=== PATIENT | male | born 1985 | race Caucasian/White ===

== ENCOUNTER 2021-05-15 19:19 | Emergency (ER) | payer BC, SELFPAY ==
--- NOTE | ~2021-05-15 | XR_ITS ---
EXAMINATION: XR chest 1V portable DATE: 05/15/2021 23:53 INDICATION: Chest of breath. Chest pain. TECHNIQUE: A single frontal view of the chest was obtained. COMPARISON: None. FINDINGS: The chest demonstrates clear lungs without pneumonia, pleural effusion, or pneumothorax. Th e heart size is normal. IMPRESSION: 1. No acute cardiopulmonary disease. Reviewed, dictated and finalized at location A. [facility]
[2021-05-15 19:48] VITALS: BP 145/97; PULSE 103; RESP 16; TEMP 36.6; O2SAT 100
[2021-05-15 21:43] VITALS: BP 150/89; PULSE 98; RESP 18; O2SAT 100
--- NOTE | 2021-05-15 21:56 | PC.NURSE ---
Pt left ED prior to seeing provider. Ambulatory with steady gait, no sign of any kind of distress.
--- NOTE | 2021-05-15 22:26 | PC.NURSE ---
Pt seen back inside of ED waiting area.
[2021-05-15 23:34] VITALS: BP 171/106; PULSE 84; RESP 17; O2SAT 100
[2021-05-15 23:35] VITALS: PULSE 88; RESP 20; O2SAT 100
--- NOTE | 2021-05-15 23:35 | ECG_ITS ---
Measurements Intervals [place] Rate: 89 P: 46 DC: 133 QRS: -10 QRSD: 84 T: 12 QT: 334 QTc: 408 Interpretive Statements SINUS RHYTHM VOLTAGE CRITERIA FOR LVH MINIMAL Q WAVES- HIGH LATERAL LEADS BORDERLINE T WAVE ABNORMALITY- INFERIOR LEADS BASELINE ARTIFACT- I, II, III, AVR, AVL, AVG, V1-V6 BORDERLINE ECG Electronically Signed On 05-16-2021 6:20:56 [employer] by Aryan Walter D.O.
[2021-05-15 23:45] VITALS: PULSE 91; RESP 20; O2SAT 100
[2021-05-15 23:46] VITALS: BP 139/97; PULSE 92; RESP 24; O2SAT 100
[2021-05-15] MEDS: amLODIPine BESYLATE 5 MG TABLET PO (23:49)
[2021-05-16 00:06] LABS: Basophils Percent Auto 0.4 % (0.2-1.2); Eosinophils Absolute Auto 0.1 K/mm3 (0-0.3); Eosinophils Percent Auto 0.8 % (0-4.4); Hematocrit 44.3 % (42.0-52.0); Hemoglobin 15.3 g/dL (14.0-18.0); Immature Granulocyte Absolute 0.04 K/mm3 (0.00-0.031); Immature Granulocyte Percent A 0.4 % (0-0.5); Lymphocytes Absolute Auto 1.77 K/mm3 (0.9-3.2); Lymphocytes Percent Auto 16.4 % (18.3-44.2); Mean Corpuscular HGB Conc 34.5 g/dl (32-36); Mean Corpuscular Hemoglobin 30.5 pg (26-34); Mean Corpuscular Volume 88.4 fl (80-100); Mean Platelet Volume 8.9 fl (7.4-10.4); Monocytes Absolute Auto 0.8 K/mm3 (0.1-0.6); Monocytes Percent Auto 7.4 % (2.6-8.5); Neutrophils Absolute Auto 8.1 K/mm3 (1.3-6.7); Neutrophils Percent Auto 74.6 % (45.5-73.1); Platelet Count Result 283 k/mm3 (150-375); Red Blood Count 5.01 M/mm3 (4.6-6.20); Red Cell Distribution Width 12.9 % (11.5-14.5); White Blood Count 10.8 K/mm3 (4.5-10.0)
[2021-05-16 00:18] LABS: Add Urine Microscopic? NO; Appearance Urine Clear (Clear); Bilirubin Urine Negative (Negative); Blood Urine Negative (Negative); Color Urine Straw (Yellow); Glucose Urine UA Negative (Negative); Ketones Urine Negative (Negative); Leukocyte Esterase Ur Negative LEU/UL (Negative); Nitrate Urine Negative (Negative); Protein Urine Negative (Negative); Specific Grav Ur 1.005 (1.001-1.035); Urobilinogen Urine Negative mg/dL (<2.0)
[2021-05-16 00:20] LABS: Anion Gap 11 mmol/L (8-16); Blood Urea Nitrogen 8 mg/dL (9-20); Calcium 9.5 mg/dL (8.4-10.2); Carbon Dioxide 27 mmol/L (22-30); Chloride 99 mmol/L (98-107); Estimated CRCL calculation 114 ml/min; Estimated Glomerular Filt Rate > 60; Glucose 94 mg/dL (65-110); Potassium 3.8 mmol/L (3.4-5.0); Sodium 137 mmol/L (137-145)
--- NOTE | 2021-05-16 00:24 | ED.GENADULT ---
HPI - General Adult General Chief complaint: Recheck/Abnormal Lab/Rx Stated complaint: HTN SOB Time Seen by Provider: 05/15/21 23:31 Source: patient Mode of arrival: ambulatory Limitations: no limitations History of Present Illness HPI narrative: 35-year-old with no major medical problems here with a complaint of elevated blood pressure for the last 1 week. Patient states that his blood pressure was high for the last few days. He denies any headache however he is states that occasionally he gets chest tightness . Also feels short of breath at times. He states he has a strong family history of high blood pressure daily patient states that he called his primary doctor and has an appointment in 1 week. He states that he is under stress he got recently and has 2 kids. Onset (ago): week(s) (1) Associated symptoms: denies other symptoms Related Data Allergies Allergy/AdvReac Type Severity Reaction Status Date / Time No Known Allergies Allergy Mild Verified 05/15/21 19:52 Review of Systems Review of Systems: All systems reviewed & are unremarkable except as noted in HPI and below Constitutional: Constitutional: Reports no additional constitutional complaints Eyes: Eyes: Reports no additional eye complaints ENT: Reports system reviewed and no additional complaints, except as documented Cardiovascular: Cardiovascular: Reports as per HPI Respiratory: Respiratory: Reports no additional respiratory complaints Gastrointestinal: Gastrointestinal: Reports no additional gastrointestinal complaints Musculoskeletal: Musculoskeletal: Reports no additional musculoskeletal complaints [facility] Family History Family History Mother Family history of gout Hypertension Father Patient's father is Social History Social History Smoking status: Former smoker Second hand tobacco smoke exposure: No Smoking end date: 04/29/15 Alcohol intake: current Exam Narrative: GENERAL: Well-appearing, well-nourished, and in no acute distress. HEAD: Normocephalic, atraumatic. EYES: PERRLA and EOMI. NECK: Supple. CHEST: Clear to auscultation. No respiratory distress. HEART: Regular rate and rhythm. No murmur heard. Normal peripheral pulses. ABDOMEN: Soft, nontender, nondistended, normal active bowel sounds. EXTREMITIES: Normal range of motion. No edema. SKIN: Warm, dry, no rash. NEURO: No focal deficits. Alert and oriented x3. PSYCH: Normal mood and affect. Course Course Emergency Course: Informed patient about his lab work. Advised him to take medication as prescribed., Follow-up with his primary doctor as scheduled. Vital Signs Vital signs: Vital Signs Temperature 36.6 C 05/15/21 19:48 Pulse Rate 103 H 05/15/21 19:48 Respiratory Rate 16 05/15/21 19:48 Blood Pressure 145/97 H 05/15/21 19:48 Pulse Oximetry 100 05/15/21 19:48 Temperature 36.6 C 05/15/21 19:48 Pulse Rate 98 05/15/21 21:43 Respiratory Rate 18 05/15/21 21:43 Blood Pressure 150/89 H 05/15/21 21:43 Pulse Oximetry 100 05/15/21 21:43 Medical Decision Making Vital Signs Vital Signs: Vital Signs Temperature 36.6 C 05/15/21 19:48 Pulse Rate 103 H 05/15/21 19:48 Respiratory Rate 16 05/15/21 19:48 Blood Pressure 145/97 H 05/15/21 19:48 Pulse Oximetry 100 05/15/21 19:48 Temperature 36.6 C 05/15/21 19:48 Pulse Rate 98 05/15/21 21:43 Respiratory Rate 18 05/15/21 21:43 Blood Pressure 150/89 H 05/15/21 21:43 Pulse Oximetry 100 05/15/21 21:43 Lab Data Result diagrams: 05/15/21 23:45 05/15/21 23:45 Labs: Lab Results 05/15/21 05/15/21 05/15/21 Range/Units 23:45 23:45 23:45 WBC 10.8 H (4.5-10.0) K/mm3 RBC 5.01 (4.6-6.20) M/mm3 Hgb 15.3 (14.0-18.0) g/dL Hct 44.3 (42.0-52.0) % MCV 88.4 (80-100) fl MCH 30.5
[2021-05-16 00:29] VITALS: PULSE 83; RESP 22; O2SAT 100
[2021-05-16 00:29] LABS: Troponin I < 0.012 ng/mL (0.000-0.034)
[2021-05-16 00:33] LABS: D Dimer 0.27 ug/mL (<0.48)
[2021-05-16 00:39] VITALS: BP 130/98; PULSE 81; RESP 12; O2SAT 97
== END 2021-05-16 00:42 | disposition home or self-care (01) ==
PROVIDERS: Emergency Provider Family Medicine; PCP Physician Assistant
DX: I10 Essential (primary) hypertension (principal); Z87.891 Personal history of nicotine dependence
CPT/HCPCS: 36415; 71045; 80048; 81003; 84443; 84484; 85025; 85380; 93005; 99284; A9270

== ENCOUNTER 2023-01-08 14:40 | Emergency (ER) | payer BC, SELFPAY ==
[2023-01-08 14:50] VITALS: BP 144/98; PULSE 112; RESP 18; TEMP 36.2; O2SAT 98
--- NOTE | 2023-01-08 15:06 | ED.NAVMDI ---
HPI - Nausea/Vomiting/Diarrhea General Chief complaint: Nausea/Vomiting/Diarrhea Stated complaint: nausea Time Seen by Provider: 01/08/23 14:49 Source: patient and RN notes reviewed Mode of arrival: ambulatory Limitations: no limitations History of Present Illness HPI Narrative: 37 y/o male presented for c/o nausea, vomiting and diarrhea x5 days. States he is unable to keep food or fluids down, and therefore unable to keep his BP medication down. However he stated he has drank 7 gallons of orange juice and 16 bottles of water since onset. Endorses feeling hungry but feels nauseated and is unable to eat. Reports about 2 liquid stools daily since onset. Denies abdominal pain, flank pain, hematochezia, melena, or hematemesis. Taking Pepto for symptoms. Denies anyone in the house with similar symptoms. Related Data Allergies Allergy/AdvReac Type Severity Reaction Status Date / Time No Known Allergies Allergy Mild Verified 01/08/23 14:43 Review of Systems Review of Systems: CONSTITUTIONAL: Denies body aches, fever, chills ENT: Denies rhinorrhea, congestion CARDIOVASCULAR: Denies chest pain, palpitations, or edema. RESPIRATORY: Denies cough or dyspnea. GASTROINTESTINAL: Endorses nausea, vomiting, diarrhea. Denies abdominal pain,hematochezia, melena, hematemesis GENITOURINARY: Denies dysuria, hematuria, or CVA tenderness. SKIN: Denies rash, itching, or wounds. MUSCULOSKELETAL: Denies back pain, joint pain, or myalgia. NEUROLOGIC: Denies headache, numbness, tingling, or weakness. All systems reviewed & are unremarkable except as noted in HPI and below PMFSH Past Medical History Medical History (Updated 01/08/23 @ 15:21 by Darlene Newman APRN) Hypertension Family History Family History Mother Family history of gout Hypertension Father Patient's father is Social History Social History Smoking status: Former smoker Second hand tobacco smoke exposure: No Smoking end date: 04/29/15 Alcohol intake: current Substance use: unknown Lack of Transportation: No Lack of Food: Never True Current Housing: I Have Housing Concerned About Future Housing: No Difficulty Paying Gas/Electric Bills: No Difficulty Paying for Meds: No Currently Unemployed: No Education: Associate Degree Difficulty w/ Childcare or Family Care: No Comments At time of signature, I have reviewed and agree with nursing past medical, surgical, social and family history unless otherwise noted. Please see nursing chart for further information. There is no relevant family history pertinent to the presenting complaint Exam Narrative: GENERAL: Well-appearing, and in no acute distress. EYES: EOMI. Conjunctivae normal. ENT: Mucous membranes pink and moist. CHEST: Clear to auscultation. HEART: Regular rate and rhythm. No murmur appreciated. Normal peripheral pulses. ABDOMEN: abd soft, nondistended, normal active bowel sounds. Nontender abdomen, No guarding, rebound tenderness, asymmetry EXTREMITIES: Normal range of motion. No edema. SKIN: Warm, dry, no rash. Capillary refill normal. Normal skin turgor. No petechiae NEURO: No focal deficits. Alert and oriented x3. PSYCH: Normal affect. Course Course Emergency Course: Patient is aware of diagnosis, understands and agrees to treatment plan. Anticipatory guidance given. Patient agrees to follow-up as directed and is aware of reasons to seek care at the emergency department. Portions of this record may have been created with voice recognition software Level of Care: Express Care Visit Vital Signs Vital signs: Vital Signs Temperature 97.2 F L 01/08/23 14:50 Pulse Rate 112 H 01/08/23 14:50 Respiratory Rate 18 01/08/23 14:50 Blood Pressure 144/98 H 01/08/23 14:50 Pulse Oximetry 98 01/08/23 14:50 Oxygen Delivery Room Air
== END 2023-01-08 15:12 | disposition home or self-care (01) ==
PROVIDERS: Emergency Provider Nurse Practitioner Family; PCP Internal Medicine
DX: R11.2 Nausea with vomiting, unspecified (principal); R19.7 Diarrhea, unspecified; I10 Essential (primary) hypertension; Z87.891 Personal history of nicotine dependence
CPT/HCPCS: 99213; G0463

== ENCOUNTER 2023-05-31 09:38 | Emergency (ER) | payer BC, SELFPAY ==
--- NOTE | 2023-05-31 09:44 | ED.URI ---
HPI - URI/Sore Throat General Chief Complaint: Upper Respiratory Infection Stated Complaint: sorthroat Time Seen by Provider: 05/31/23 09:55 Source: patient, RN notes reviewed and old records reviewed Mode of arrival: ambulatory Limitations: no limitations History of Present Illness HPI Narrative: 37-year-old male presents to the [facility] with complaints of a sore throat. Symptoms started about 2 days ago Has use Chloraseptic spray Reports exposure to strep MD elicited complaint: sore throat Related Data Allergies Allergy/AdvReac Type Severity Reaction Status Date / Time No Known Allergies Allergy Mild Verified 05/31/23 09:55 Review of Systems Review of Systems: All systems reviewed & are unremarkable except as noted in HPI and below Constitutional: Constitutional: Reports no additional constitutional complaints Eyes: Eyes: Reports no additional eye complaints ENT: Reports as per HPI and Reports sore throat Cardiovascular: Cardiovascular: Reports no additional cardiovascular complaints, Denies chest pain and Denies dyspnea Respiratory: Respiratory: Reports no additional respiratory complaints, Denies chest congestion, Denies cough and Denies dyspnea Gastrointestinal: Gastrointestinal: Reports no additional gastrointestinal complaints, Denies abdominal pain, Denies nausea and Denies vomiting Musculoskeletal: Musculoskeletal: Reports no additional musculoskeletal complaints Integumentary/Breasts: Skin/Breast: Reports system reviewed and no additional complaints, except as docu Neurologic: Reports system reviewed and no additional complaints, except as documented Psychiatric: Psychiatric: Reports no additional psychiatric complaints Allergic/Immunologic: Allergic/Immunologic: Reports no additional allergic/immunologic complaints [facility] Past Medical History Medical History Hypertension Family History Family History Mother Family history of gout Hypertension Father Patient's father is Social History Social History Smoking status: Former smoker Second hand tobacco smoke exposure: No Smoking end date: 04/29/15 Alcohol intake: current Substance use: unknown Lack of Transportation: No Lack of Food: Never True Current Housing: I Have Housing Concerned About Future Housing: No Difficulty Paying Gas/Electric Bills: No Difficulty Paying for Meds: No Currently Unemployed: No Education: Associate Degree Difficulty w/ Childcare or Family Care: No Comments At the time of my signature, I reviewed and agree with the nursing past medical, surgical, social, and family history. There is no relevant family history pertinent to the patient complaint. Exam Const: General: cooperative, healthy appearing, comfortable, no acute distress, well developed, alert and well nourished Nutritional Appearance: well nourished Orientation/consciousness: patient oriented x3 Limitations: no limitations HENMT: Head: normal to inspection Ears: hearing grossly normal bilaterally, external ears normal, TM's normal bilaterally, EAC's normal, mastoids normal and no periauricular adenopathy Face/Nose/Sinus: Normal external nose present, Normal nares present, Normal nasal mucous membranes and turbinates present, normal facial exam and face symmetric Face and sinus: normal facial exam, sinuses nontender and face symmetric Mouth: Yes Normal oral and palatal mucosa present, Yes lip normal, Yes tongue normal and Yes moist mucous membranes Throat: uvula midline, abnormal tonsil bilateral erythema; no exudates and no hypertrophy, posterior oropharynx abnormal erythema; no cobblstoning, no edema, no exudates, no lacerations and no foreign body and postnasal drainage Eyes: General: appearance normal, both eyes and all related structures
[2023-05-31 09:55] VITALS: BP 132/90; PULSE 107; RESP 18; TEMP 36.4; O2SAT 97
== END 2023-05-31 10:12 | disposition home or self-care (01) ==
PROVIDERS: Emergency Provider Nurse Practitioner; PCP Internal Medicine
DX: J02.9 Acute pharyngitis, unspecified (principal); I10 Essential (primary) hypertension; Z87.891 Personal history of nicotine dependence
CPT/HCPCS: 87081; 87880; 99213; G0463

== ENCOUNTER 2024-06-25 11:38 | Emergency (ER) | payer BC, SELFPAY ==
--- NOTE | 2024-06-25 11:40 | ED.URI ---
HPI - URI/Sore Throat General Chief Complaint: Upper Respiratory Infection Stated Complaint: Sinus infection Time Seen by Provider: 06/25/24 11:40 Source: patient Mode of arrival: ambulatory Limitations: no limitations History of Present Illness HPI Narrative: Diego is a 38-year-old male patient presenting to the clinic today with complaints of possible sinus infection. He reports he has had headache, sinus congestion, cough, scratchy throat, and ears itching x3 days. No known fever. Denies any chest pain or shortness of breath. Is blowing out clear nasal drainage with some blood in it MD elicited complaint: cough, sore throat and nasal congestion Related Data Allergies Allergy/AdvReac Type Severity Reaction Status Date / Time No Known Allergies Allergy Mild Verified 06/25/24 11:55 Review of Systems Review of Systems: Pertinent positives per HPI. Patient denies any fever, chills, rash, visual changes, dizziness, shortness of breath, chest pain, palpitations, nausea, vomiting, diarrhea, constipation, abdominal pain, or any urinary issues. PMFSH Past Medical History Medical History Testicular pain Hyperkalemia Elevated BP without diagnosis of hypertension Hypertension Family History Family History Mother Family history of gout Hypertension Father Patient's father is Social History Social History Smoking status: Former smoker Second hand tobacco smoke exposure: No Smoking end date: 04/29/15 Alcohol intake: current Substance use: unknown Lack of Transportation: No Lack of Food: Never True Current Housing: I Have Housing Concerned About Future Housing: No Difficulty Paying Gas/Electric Bills: No Difficulty Paying for Meds: No Currently Unemployed: No Education: Associate Degree Difficulty w/ Childcare or Family Care: No Comments At the time of my signature, I reviewed and agree with the nursing past medical, surgical, social, and family history. There is no relevant family history pertinent to the patient complaint. Exam Narrative: General: Well-developed, well nourished, in no apparent distress Head: Normocephalic, atraumatic Eyes: Pupils equally round and reactive to light bilaterally, EOM intact, sclera and conjunctive clear, no discharge, lids normal Ears: TMs intact and congested, ear canals clear, no drainage, grossly hearing normal. Nose: Nares patent, clear nasal discharge, moderate inflammation, maxilla sinus tenderness. Mouth: Oral pharynx red without lesions or masses, good dentition, MMM. Postnasal drip Neck: Supple, trachea midline, no enlargement of anterior or posterior cervical nodes, no thyroid masses or goiter palpable. Cardio: Regular rate and rhythm, s1 and s2 normal, no murmur appreciated. Resp: Clear to auscultation bilaterally, no rhonchi, rales, wheezing or rubs Course Course Emergency Course: Portions of this record may have been created with voice recognition software. Level of Care: Express Care Visit Vital Signs Vital signs: Vital signs reviewed MDM - URI/Sore Throat MDM Narrative Medical decision making narrative: At the time of visit patient is resting comfortably on the exam table. Patient appears to be nontoxic. Labs: Influenza and COVID test were performed. Testing was negative Plan: I suspect patient has URI. Prescription for prednisone was sent to the pharmacy. Supportive measures were discussed with the patient and they voiced understanding discharge instructions and agrees to treatment plan. Return precautions reviewed Differential Diagnosis Differential diagnosis: Likely upper respiratory infection, otitis media, sinusitis, viral infection, bronchitis, influenza, pharyngitis and other (COVID) Discharge Plan Discharge Clinical Impression: URI (upper respiratory infection) Qualifiers: URI type: unspecified URI Qualified Code(s): J06.9 - Acute upper respiratory infection, unspecified Patient Disposition: Home, Self-Care Condition: Stable Instructions: Antibiotic Form, Cold Symptoms (ED) Additional Instructions: COVID and influenza testing was negative in the clinic today. Take prescription medications only as prescribed-prednisone Increase fluids and stay well hydrated Tylenol/motrin for pain/fever Flonase and OTC antihistamines as directed Vicks vapor rub to open sinuses Sinus rinses for congestion Cepacol spray, cough drops, throat lozenges, warm tea with honey/lemon, gargle salt water to soothe throat BRAT diet for diarrhea Clear liquids x 24 hours then advance as tolerated for nausea/vomiting Go to the ED if you develop a worsening in your condition- high fever not controlled by Tylenol or Motrin, dehydration, weakness, lethargy, shortness of breath, or chest pain. Follow up with your PCP in 3-5 days if symptoms persist. Patient Language: [place]anian Prescriptions: New prednisone 20 mg tablet 40 mg PO DAILY 5 Days Qty: 10 0RF No Action lisinopril 10 mg tablet 10 mg PO DAILY Qty: 90 3RF Follow-up/Referrals: Alonso Cesar DO [Primary Care Provider] - Stand Alone Forms: Work/School Release IP Time of Disposition: 12:15 Quality NIHSS Nursing Documentation ED NIHSS nursing documentation: reviewed/agree
[2024-06-25 11:48] VITALS: BP 112/70; PULSE 78; RESP 18; TEMP 36.2; O2SAT 100
[2024-06-25 12:08] LABS: EDCOVIDSCREEN Negative (Negative); EDINFLUASCREEN Negative (Negative); EDINFLUBSCREEN Negative (Negative)
== END 2024-06-25 12:22 | disposition home or self-care (01) ==
PROVIDERS: Emergency Provider Nurse Practitioner Family; PCP Internal Medicine
DX: J06.9 Acute upper respiratory infection, unspecified (principal); I10 Essential (primary) hypertension; Z87.891 Personal history of nicotine dependence; Z20.822 Contact with and (suspected) exposure to COVID-19
CPT/HCPCS: 87426; 87804; 99213; G0463